=== PATIENT | female | born 1960 | race Caucasian/White ===

== ENCOUNTER 2021-05-23 09:14 | Emergency (ER) | payer BC ==
[2021-05-23] MEDS ORDERED: Ketorolac 30 MG/ML SDV IM STA (12:24)
[2021-05-23] MEDS ORDERED: traMADol 50 MG Tab PO STA (12:24)
--- NOTE | 2021-05-23 12:41 | EDM.PDOC ---
ED HPI GENERAL MEDICAL PROBLEM - General Chief Complaint: Lower Extremity Injury/Pain Stated Complaint: fall Time Seen by Provider: 05/23/21 09:20 Source of Information: Reports: Patient, Family History Limitations: Reports: No Limitations - History of Present Illness INITIAL COMMENTS - FREE TEXT/NARRATIVE: Patient presented to the ED because of bilateral knee/ankle/foot pain after falling at 0200. She apparently has a diabetic reaction and fell down. Doesn't know if she lost consciousness but found her on the floor later AAO x3. Bilateral ankle/foot, R>L, R knee Pain Score (Numeric/FACES): 7 - Related Data Allergies Allergy/AdvReac Type Severity Reaction Status Date / Time meperidine [From Demerol] Allergy Cannot Verified 05/23/21 12:06 Remember oxaprozin [From Daypro] Allergy Cannot Verified 05/23/21 12:06 Remember Penicillins Allergy Rash Verified 05/23/21 12:06 Home Meds: Home Meds Ibuprofen 800 mg PO Q8H PRN #30 tablet 05/23/21 [Rx] traMADol [Ultram] 100 mg PO Q8H PRN #15 tab 05/23/21 [Rx] Past Medical History HEENT History: Reports: Hard of Hearing Genitourinary History: Reports: Pyelonephritis, UTI, Recurrent [employer] History: Reports: Other [employer] History: Musculoskeletal History: Reports: Arthritis, Fracture Other Musculoskeletal History: hx R wrist fx Endocrine/Metabolic History: Reports: Diabetes, Type I, Hypothyroidism, Obesity/BMI 30+ - Infectious Disease History Infectious Disease History: Reports: Chicken Pox, Measles, Mumps - Past Surgical History HEENT Surgical History: Reports: Cataract Surgery, Laser Surgery Other HEENT Surgeries/Procedures: bilat cataract GI Surgical History: Reports: Cholecystectomy Musculoskeletal Surgical History: Reports: ORIF Social & Family History - Family History Family Medical History: No Pertinent Family History Review of Systems - Review of Systems Review Of Systems: See Below Constitutional: Reports: No Symptoms Eyes: Reports: No Symptoms Ears: Reports: No Symptoms Nose: Reports: No Symptoms Mouth/Throat: Reports: No Symptoms Respiratory: Reports: No Symptoms Cardiovascular: Reports: No Symptoms GI/Abdominal: Reports: No Symptoms Genitourinary: Reports: No Symptoms Musculoskeletal: Reports: Other (bilateral-knee/ankle/foot pain) Skin: Reports: No Symptoms Neurological: Reports: No Symptoms Psychiatric: Reports: No Symptoms ED EXAM, GENERAL - Physical Exam Exam: See Below Exam Limited By: No Limitations General Appearance: Alert, No Apparent Distress Eye Exam: Bilateral Eye: PERRL Ears: Normal External Exam, Normal Canal Nose: Normal Inspection, Normal Mucosa, No Blood Throat/Mouth: Normal Inspection, Normal Lips, Normal Teeth Head: Atraumatic, Normocephalic Neck: Normal Inspection, Supple, Non-Tender, Full Range of Motion Respiratory/Chest: No Respiratory Distress, Lungs Clear, Normal Breath Sounds, No Accessory Muscle Use, Chest Non-Tender Cardiovascular: Normal Peripheral Pulses, Regular Rate, Rhythm, No Edema, No Gallop, No JVD, No Murmur GI/Abdominal: Normal Bowel Sounds, Soft, Non-Tender, No Organomegaly, No Distention, No Abnormal Bruit, No Mass Back Exam: Normal Inspection, Full Range of Motion Extremities: Limited Range of Motion, Other (tenderness bilateral- knee/ankle/foot) Psychiatric: Normal Affect Skin Exam: Warm Course - Vital Signs Text/Narrative:: Xray result was reviewed and discussed with patient Toradol 60 mg IM x1 Tramadol 50 mg PO x1 Last Recorded V/S: Last Vital Signs Temp 37.1 C 05/23/21 09:14 Pulse 90 05/23/21 13:04 Resp 18 05/23/21 13:04 BP 182/60 H 05/23/21 13:04 Pulse Ox 97 05/23/21 13:04 - Orders/Labs/Meds Meds: Medications Discontinued Medications Generic Name Dose Route Start Last Admin Trade Name Freq PRN Reason Stop Dose Admin Ketorolac Tromethamine 60 mg 05/23/21 12:24 05/23/21 12:43 Ketorolac 30 Mg/Ml Sdv IM 05/23/21 12:25 60 mg NOW STA Administration Tramadol HCl 50 mg 05/23/21 12:24 05/23/21 12:42 Tramadol 50 Mg Tab PO 05/23/21 12:25 50 mg NOW STA Administration Departure - Departure Time of Disposition: 12:45 Disposition: Home, Self-Care 01 Condition: Good Clinical Impression: Ankle sprain, Knee sprain, Contusion, Sprain of knee - Discharge Information Prescriptions: Ibuprofen 800 mg PO Q8H PRN #30 tablet PRN Reason: Pain traMADol [Ultram] 100 mg PO Q8H PRN #15 tab PRN Reason: Pain Instructions: Ankle Sprain, [id number], Knee Sprain, Adult, [id number], Contusion, [id number] Referrals: PCP,Not In Area [Primary Care Provider] - Forms: ED Department Discharge Additional Instructions: Please read discharge instructions on knee and ankle sprain , contusion Apply ice or heat whichever makes the pain fell better Take tramadol 100 mg with tylenol 1000 mg and ibuprofen 800 mg every 8 hours as needed for pain. Take them all at the same time for better pain relief Follow up as needed
--- NOTE | 2021-05-23 13:05 | CR ---
INDICATION: Fall, left knee pain. LEFT KNEE 46953: AP, lateral, and patellar sunrise views of the left knee revealed no evidence of an acute fracture or dislocation or definite joint effusion. Hypertrophic degenerative changes are noted at the intercondylar spines, minimally in the notch, and medially off the femur and tibia as well as at the patellofemoral joint. Narrowing of the lateral patellofemoral joint space of mild degree is noted with femorotibial joint spaces fairly well maintained. IMPRESSION: 1. No acute fracture or dislocation. 2. Osteoarthritis. 3. ASD with arterial calcifications noted posteriorly. MTDD
--- NOTE | 2021-05-23 13:08 | CR ---
INDICATION: Fall, right knee pain. RIGHT KNEE 28969: Three views of the right knee were obtained 05/23/21 - no comparisons. An additional oblique view was obtained. Hypertrophic degenerative changes are noted at the intercondylar spines, notch, and medially off the femur and tibia and appear more severe than on the left with severe narrowing of the medial femorotibial joint space noted. Hypertrophic changes at the patellofemoral joint are more prominent than on the left also. There also appears to be slightly increased density at the suprapatellar bursa area raising question of a minimal knee joint effusion. A definite acute fracture or dislocation was not identified, however. IMPRESSION: 1. No acute fracture or dislocation. 2. Osteoarthritis with severe medial femorotibial joint space narrowing. 3. Question minimal knee joint effusion. [facility]
--- NOTE | 2021-05-23 13:12 | CR ---
INDICATION: Fall, right foot pain. RIGHT FOOT 22550: Three views of the right foot were obtained 05/23/21 - no comparisons. Degenerative - osteoarthritic changes are noted at the DIPJ's at the 2nd and 3rd toes and very minimally at the interphalangeal joint of the great toe as well as to a mild to moderate degree at the 4th metatarsophalangeal joint and at the PIPJ of the 4th toe. A definite acute fracture or dislocation was not identified. IMPRESSION: 1. Relatively mild overall osteoarthritis. 2. No acute fracture or dislocation. MTDD
--- NOTE | 2021-05-23 13:14 | CR ---
INDICATION: Fall, right ankle pain. RIGHT ANKLE 51425: Three views of the right ankle revealed a small posterior calcaneal spur. There are some degenerative changes of a mild degree at the medial ankle joint mortise. Soft tissue swelling is noted about the ankle medially to a greater extent than laterally. The ankle mortise appears to be fairly intact without a definite acute fracture or dislocation. Overlying arterial calcifications are noted. IMPRESSION: 1. No acute fracture or dislocation. 2. Osteoarthritis. 3. ASD. MTDD
--- NOTE | 2021-05-23 13:17 | CR ---
INDICATION: Fall, left ankle pain. LEFT ANKLE 49960: Three views of the left ankle reveal soft tissue swelling, especially medially. Degenerative changes are noted at the medial ankle mortise. The ankle mortise appears to be fairly intact otherwise without evidence of an acute fracture or dislocation. Arterial calcifications are noted. Small posterior calcaneal spur is noted. IMPRESSION: 1. No acute fracture or dislocation. 2. Osteoarthritis. 3. Small heel spur similar to the right ankle. Reports were called to Dr. Campos at 1202 hours, 05/23/21. [facility]
== END 2021-05-23 13:15 | disposition home or self-care (01) ==
LOC: FB.ED 09:14
DX: S93.401A Sprain of unspecified ligament of right ankle, initial encounter (principal); S93.402A Sprain of unspecified ligament of left ankle, initial encounter; S83.91XA Sprain of unspecified site of right knee, initial encounter; S83.92XA Sprain of unspecified site of left knee, initial encounter; M19.90 Unspecified osteoarthritis, unspecified site; E10.9 Type 1 diabetes mellitus without complications; E66.9 Obesity, unspecified; Z68.41 Body mass index [BMI] 40.0-44.9, adult; Z88.5 Allergy status to narcotic agent; Z88.0 Allergy status to penicillin; Z88.8 Allergy status to other drugs, medicaments and biological substances; W18.30XA Fall on same level, unspecified, initial encounter
CPT/HCPCS: 73562; 73610; 73630; 96372; 99283; A9270; J1885